=== PATIENT | female | born 1995 | race Caucasian/White ===

== ENCOUNTER 2024-03-27 10:54 | Outpatient (CLI) | payer OTHER ==
[~2024-03-27] VITALS: Ht 154.9 cm; Wt 65.3 kg
[2024-03-27 09:59] VITALS: BP 110/65
[2024-03-27] MEDS ORDERED: PRENATAL TABLE1 EAC1 PO (10:59)
[2024-03-27 11:45] VITALS: BP 92/59
[2024-03-27 15:19] VITALS: BP 101/65
[2024-03-27 19:38] VITALS: BP 99/60
[2024-03-27 20:51] VITALS: BP 99/60
== END 2024-03-27 20:51 | disposition home or self-care (01) ==
LOC: OBS/DEL 10:54
PROVIDERS: ATTEND Obstetrics & Gynecology
DX: O26.892 Other specified pregnancy related conditions, second trimester (principal); O26.849 Uterine size-date discrepancy, unspecified trimester; O44.00 Complete placenta previa NOS or without hemorrhage, unspecified trimester; O26.859 Spotting complicating pregnancy, unspecified trimester; Z3A.20 20 weeks gestation of pregnancy